=== PATIENT | male | born 1960 | race African-American/Black ===

== ENCOUNTER 2020-08-11 14:53 | Emergency (ER) | payer OTHER ==
[~2020-08-11] VITALS: Ht 167.6 cm; Wt 90.7 kg
[~2020-08-11 14:53] MED LIST: AVANDIA8 MG PO; BACTRIM DS TAB1 EACH PO; DOXYCYCLINE 10100 MG PO; FLOMAX0.4 MG PO; FLONASE 0.05%50 MCG NASAL; GLIPIZIDE 10 MG10 M1 PO; GLUMETZA1000 MG PO; HYDROCODONE-AP1 EAC6 PO; LEVEMIR SQ; LISINOPRIL10 MG PO; NOVOLOG100 UNIT/1 SQ; ULTRAM 50MG TAB50 MG PO; ZOCOR20 MG PO
[2020-08-11] MEDS ORDERED: NEURONTIN300 MG PO (15:08)
[2020-08-11] MEDS ORDERED: SIMVASTATIN80 MG PO (15:09)
[2020-08-11] MEDS ORDERED: LISINOPRIL10 MG PO (15:09)
[2020-08-11] MEDS ORDERED: TRACEBA (15:10)
[2020-08-11] MEDS ORDERED: [UNRECOGNIZED DRUG - OTHER] (15:10)
[2020-08-11 15:39] VITALS: BP 134/73
== END 2020-08-11 15:39 | disposition home or self-care (01) ==
LOC: M.ERS 14:53
DX: R50.9 Fever, unspecified (principal); I10 Essential (primary) hypertension; E11.9 Type 2 diabetes mellitus without complications; Z79.899 Other long term (current) drug therapy; Z20.828 Contact with and (suspected) exposure to other viral communicable diseases